=== PATIENT | female | born 1995 | race African-American/Black ===

== ENCOUNTER 2019-05-06 15:42 | Emergency (ER) | payer OTHER ==
[2019-05-06] MEDS ORDERED: TETRACAINE HCL 0.5% OPH SOLN 4 ML OS ONE (17:47)
[2019-05-06] MEDS ORDERED: ERYTHROMYCIN 0.5% OPH OINTMENT 3.5 GM (ER DISP) OS ONE (18:13)
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
[2019-05-06 18:27] VITALS: BP 135/76
== END 2019-05-06 18:25 | disposition home or self-care (01) ==
LOC: ER 15:42
DX: H57.89 Other specified disorders of eye and adnexa (principal); H57.10 Ocular pain, unspecified eye; F17.290 Nicotine dependence, other tobacco product, uncomplicated; Z71.6 Tobacco abuse counseling
CPT/HCPCS: 99406; 99283; J3490